=== PATIENT | female | born 1990 | race American Indian/Alaskan Native ===

== ENCOUNTER 2018-05-25 11:56 | Outpatient (CLI) | payer MEDICAID ==
[2018-05-25 12:24] VITALS: BP 137/75
== END 2018-05-25 13:23 | disposition home or self-care (01) ==
LOC: TRG 11:56
PROVIDERS: ATTEND Obstetrics & Gynecology
DX: O47.1 False labor at or after 37 completed weeks of gestation (principal); Z3A.39 39 weeks gestation of pregnancy
CPT/HCPCS: 59025

== ENCOUNTER 2018-06-03 15:27 | Inpatient (IN) | payer MEDICAID ==
[2018-06-03] MEDS ORDERED: MINERAL OIL PO PRN (16:05)
[2018-06-03] MEDS ORDERED: ZOFRAN IV PRN (16:05)
[2018-06-03] MEDS ORDERED: BRETHINE IVP PRN (16:05)
[2018-06-03] MEDS ORDERED: BRETHINE SUB-Q PRN (16:05)
[2018-06-03] MEDS ORDERED: XYLOCAINE 2% INFILTRATI ONE (16:05)
[2018-06-03] MEDS ORDERED: PITOCin/NS 30 UNIT/500ML 30 UNITS/500 ML BAG IV SCH ×2 (17:00)
[2018-06-03] MEDS ORDERED: PITOCin/NS 20 UNIT/1000ML DRIP 20 UNITS/1,000 ML BAG IV SCH (17:00)
--- NOTE | 2018-06-03 17:32 | History and Physical Report ---
History of Present Illness Date of examination: 06/03/18 Date of admission: 06/03/18 15:27 Chief complaint: SIUP at 40 weeks and 2 days with HTN. History of present illness: Patient is a 27 year old , LMP 08/25/17, EDC 06/01/18 at 40 weeks and 2 days gestation who was sent from the office for elevated BP. BP was 158/98, repeat was 148/94. She denies any headache, visual changes or RUQ pain. She denies any contractions, fluid leakage or bleeding. She reports good movement. Past History Past Surgical History: no surgical history [employer] History: chlamydia, trichomonas Family/Genetic History: none Social history: no significant social history - Obstetrical History Expected Date of Delivery: 06/01/18 Actual Gestation: 40 Week(s) 2 Day(s) : 1 Medications and Allergies Allergies Allergy/AdvReac Type Severity Reaction Status Date / Time No Known Allergies Allergy Unverified 05/25/18 12:24 Home Medications Medication Instructions Recorded Confirmed Last Taken Type No Known Home Medications [No 05/25/18 05/25/18 Unknown History Reported Home Medications] Active Meds: Active Medications Butorphanol Tartrate (Stadol) 1 mg IV Q2H PRN PRN Reason: Pain, Moderate (4-6) Ephedrine Sulfate (Ephedrine Sulfate) 10 mg IV Q2M PRN PRN Reason: Hypotension Lactated Ringer's (Lactated Ringers) 1,000 mls @ 125 mls/hr IV DIRECT RAJEEV Oxytocin/Sodium Chloride (Pitocin/Ns 20 Unit/1000ml Drip) 20 units in 1,000 mls @ 125 mls/hr IV DIRECT RAJEEV Oxytocin/Sodium Chloride (Pitocin/Ns 30 Unit/500ml) 30 units in 500 mls @ 1 mls /hr IV TITR RAJEEV; Protocol Oxytocin/Sodium Chloride (Pitocin/Ns 30 Unit/500ml) 30 units in 500 mls @ 0 mls /hr IV TITR RAJEEV; Protocol Mineral Oil (Mineral Oil) 30 ml PO QHS PRN PRN Reason: Constipation Ondansetron HCl (Zofran) 4 mg IV Q8H PRN PRN Reason: Nausea And Vomiting Terbutaline Sulfate (Brethine) 0.25 mg SUB-Q ONCE PRN PRN Reason: Hyperstimulation/Hypertonicity Terbutaline Sulfate (Brethine) 0.25 mg IVP ONCE PRN PRN Reason: Hyperstimulation/Hypertonicity - Vital Signs Vital signs: Vital Signs Pulse BP 105 H 145/62 06/03/18 16:07 06/03/18 16:07 Temp Pulse Resp BP Pulse Ox 100 H 119/57 06/03/18 16:37 06/03/18 16:37 - Physical Exam Cardiovascular: Normal S1, Normal S2 Lungs: Positive: Clear to auscultation Vulva: both: normal Adnexa: both: normal Deep Tendon Reflex Grade: Normal +2 - Obstetrical FHR: category 1 Uterine Contraction Monitor Mode: External Cervical Dilatation: 2 Cervical Effacement Percentage: 50 station: -3 Uterine Contraction Pattern: Absent Results All other labs normal. Assessment and Plan - Patient Problems (1) 40 weeks gestation of Current Visit: Yes Status: Acute (2) Gestational HTN Current Visit: Yes Status: Acute Plan to address problem: Admit to labor floor. Routine admitting and toxemia labs ordered. BP monitoring. monitorig. Labor induction with pitocin. (3) Late care Current Visit: Yes Status: Acute (4) Anemia Current Visit: Yes Status: Acute Qualifiers: Anemia type: iron deficiency (5) Rh negative status during Current Visit: Yes Status: Acute Plan to address problem: For rhogam after delivery.
[2018-06-03 18:53] LABS: Hemoglobin 11.1 gm/dl (10.1-14.3); Mean Corpuscular HGB Conc 34 % (30-34); Mean Corpuscular Hemoglobin 33 pg (28-32); Mean Corpuscular Volume 98 fl (79-97); Platelet Count 196 K/mm3 (140-440); Red Blood Count 3.37 M/mm3 (3.65-5.03); Red Cell Distribution Width 13.2 % (13.2-15.2)
[2018-06-03 19:06] LABS: Alanine Aminotransferase 7 units/L (7-56); Uric Acid 4.6 mg/dL (3.5-7.6)
[2018-06-03] MEDS: LACTATED RINGERS 1,000 ML IV SCH (20:48)
[2018-06-03] MEDS: STADOL IV PRN (22:46)
[2018-06-03 23:16] LABS: Bilirubin,Urine Negative (Negative); Blood,Urine Negative (Negative); Color,Urine Yellow (Yellow); Protein,Urine <15 mg/dL mg/dL (Negative); Urobilinogen,Urine < 2.0 mg/dL (<2.0)
[2018-06-03 23:19] LABS: Amorphous Crystals,Urine Few
[2018-06-04] MEDS: STADOL IV PRN ×3 (01:37→05:39)
[2018-06-04] MEDS: LACTATED RINGERS 1,000 ML IV SCH ×3 (03:46→15:47)
--- NOTE | 2018-06-04 07:42 | Anesthesia Consultation ---
Anesthesia Consult and Med Hx - Airway Anesthetic Teeth Evaluation: Good ROM Head & Neck: Adequate Mental/Hyoid Distance: Adequate Mallampati Class: Class III Intubation Access Assessment: Possibly Difficult - Pre-Operative Health Status ASA Pre-Surgery Classification: ASA2 Proposed Anesthetic Plan: Epidural, Spinal - Pulmonary Hx Asthma: No Hx Pneumonia: No - Cardiovascular System Hx Hypertension: No - Central Nervous System Hx Seizures: No Hx Psychiatric Problems: No - Endocrine Hx Renal Disease: No Hx Hypothyroidism: No Hx Hyperthyroidism: No - Hematic Hx Anemia: No Hx Sickle Cell Disease: No - Other Systems Hx Alcohol Use: No Hx Obesity: Yes
[2018-06-04] MEDS ORDERED: NARCAN 2 MG/2 ML IV PRN (08:30)
--- NOTE | 2018-06-04 08:45 | Event Note ---
Date: 06/04/18 Patient is obese with difficulty estimating her EFW. Obtained sono for growth which shows is ~ 7-8 lbs and cephalic. Continue with present care.
--- NOTE | 2018-06-04 09:11 | Ultrasound Report ---
OB ULTRASOUND History suspect macrosomia. Technique: Transabdominal ultrasound with Doppler interrogation. Gestation: Single Position: Cephalic Heart Rate: 149 BPM BPD: 9.1 cm = 37 w 0 d HC: 34.2 cm = 39 w 3 d AC: 34.0 cm = 37 w 6 d FL: 7.5 cm = 38 w 4 d HC/AC Ratio: 1.01 Cephalic Index: 76.6 Estimated Weight: 3401 grams LMP: 08/25/17 Clinical age = 40 w 3 d EDC: 06/01/18 US Gest. Age = 38 w 2 d EDC: 06/16/18 IMPRESSION: Viable, single intrauterine as described.
[2018-06-04] MEDS: fentaNYL-BUPIV 2 MCG/ML-0.125% 200 MCG/100 ML BAG EPIDURAL SCH ×2 (09:31→15:43)
[2018-06-04] MEDS ORDERED: TORADOL ONE (14:50)
[2018-06-04] MEDS ORDERED: XYLOCAINE 2% INFILTRATI ONE (16:46)
[2018-06-04] MEDS ORDERED: ZOFRAN IV PRN (17:14)
[2018-06-04] MEDS ORDERED: TUCKS PAD TP PRN (17:14)
[2018-06-04] MEDS ORDERED: BENADRYL PO PRN (17:14)
[2018-06-04] MEDS ORDERED: TYLENOL PO PRN (17:14)
[2018-06-04] MEDS ORDERED: MILK OF MAGNESIA PO PRN (17:14)
[2018-06-04] MEDS ORDERED: DULCOLAX PR PRN (17:14)
[2018-06-04] MEDS ORDERED: PHENERGAN PO PRN (17:14)
[2018-06-04] MEDS ORDERED: LANSINOH TP PRN (17:14)
--- NOTE | 2018-06-04 17:35 | Procedure Note ---
OB Delivery Note - Delivery Date of Delivery: 06/04/18 (16:44) Surgeon: ED VARGAS (DION) Estimated blood loss: 200cc - Vaginal Delivery presentation: vertex, compound (Left hand) Delivery position: OA Intrapartum events: mult.variable deceleratio Delivery induction: oxytocin Delivery augmentation: rupture of membranes Delivery monitor: external FHT, external uterine Route of delivery: Delivery placenta: spontaneous (16:49; Velamentous cord insertion with succenturiate lobe (sent to pathology)) Delivery cord: 3 umbilical vessels Episiotomy: none Delivery laceration: 1st degree (Perineal) Delivery repair: vicryl (2-0 CT) Delivery comments: of viable male infant at 16:44. Compound presentation (left hand), posterior arm delivered first without difficulty. less than vigorous. Stimulated and bulb suctioned by myself. Delayed cord clamping then cut by family member. to RW. APGARS 7/9. Good movement in both arms. Cord blood collected per protocol. Spontaneous ibarra delivery of intact placenta at 16:49 , Velamentous cord insertion noted with succenturiate lobe noted (to pathology) . FF@U-2. First degree perineal laceration repaired with 2-[address] under epidural/2% lidocaine. Pt tolerated well. and mother left in stable conditon in L&D. GBS Negative. - Infant A at 1 minute: 7 at 5 minutes: 9 Gender: Male (3795 grams, 8lbs 6oz, 20 3/4")
[2018-06-04] MEDS ORDERED: SODIUM CHLORIDE FLUSH SYRINGE 10 ML IV NR (18:00)
[2018-06-04] MEDS: MOTRIN PO SCH (18:56)
[2018-06-04] MEDS: NORCO 5/325 PO PRN (20:35)
[2018-06-05] MEDS: MOTRIN PO SCH ×4 (00:09→21:09)
[2018-06-05 06:12] LABS: Hematocrit 27.1 % (30.3-42.9); Hemoglobin 9.2 gm/dl (10.1-14.3)
--- NOTE | 2018-06-05 10:25 | Progress Note ---
Assessment and Plan A: PP Day#1 Asymptomatic Anemia P: Follow Routine Orders FeSO4 325mg PO BID Depo Provera prior to discharge RTO in one Week for Infant Circumcision D/C Home in the AM RTO in 6 Weeks Subjective - Subjective Date of service: 06/05/18 Patient reports: appetite normal, voiding normally, pain well controlled, flatus , ambulating normally [place]: doing well, bottle feeding Objective - Vital Signs Latest vital signs: Vital Signs Temp Pulse Resp BP BP Pulse Ox 06/05/18 08:23 102 H 18 140/83 98 06/05/18 08:00 98.6 F 06/05/18 00:00 98.7 F 77 18 117/67 06/04/18 20:35 18 06/04/18 20:00 98.7 F 77 16 101/76 06/04/18 18:20 98.9 F 104 H 20 134/84 06/04/18 17:59 122 H 125/76 06/04/18 17:44 110 H 130/82 06/04/18 15:41 83 125/80 06/04/18 15:20 98 H 100 06/04/18 15:15 80 100 06/04/18 15:10 95 H 100 06/04/18 15:05 98 H 100 06/04/18 15:00 81 100 06/04/18 14:55 101 H 100 06/04/18 14:50 93 H 100 06/04/18 14:45 78 65 L 06/04/18 14:40 80 135/63 100 06/04/18 14:34 98 H 100 06/04/18 14:30 98 H 100 06/04/18 14:25 92 H 99 06/04/18 14:20 88 98 06/04/18 13:40 103 H 136/83 06/04/18 12:39 88 127/71 06/04/18 11:39 90 119/65 06/04/18 10:40 93 H 144/83 Intake and Output 06/04/18 06/05/18 06/05/18 22:59 06:59 14:59 Intake Total 1300 Output Total 1000 Balance 300 Intake: IV 1000 Lactated Ringers 1,000 ml 1000 @ 125 mls/hr IV DIRECT RAJEEV Rx#:[id number] Intake, Free Water 300 Output: Urine 1000 Indwelling Catheter 1000 Other: Total, Output Amount 1000 Estimated Blood Loss 200 - Exam Breasts: Present: normal Cardiovascular: Present: Regular rate Lungs: Present: Clear to auscultation, Normal air movement Abdomen: Present: normal appearance, soft, normal bowel sounds Uterus: Present: normal, firm, fundal height below umbilicus Extremities: Present: normal - Labs Labs: Abnormal lab results 06/05/18 Range/Units 05:21 Hgb 9.2 L (10.1-14.3) gm/dl Hct 27.1 L (30.3-42.9) %
--- NOTE | 2018-06-05 10:27 | Discharge Summary ---
Providers - Providers Date of Admission: 06/03/18 15:27 Date of discharge: 06/06/18 Attending physician: SCOTTIE MAJANO MD Primary care physician: SCOTTIE MAJANO MD Hospitalization Reason for admission: induction of labor Delivery: Episiotomy: none Laceration: 1st degree Other procedures: none complications: none Discharge diagnosis: IUP at term delivered [place] baby: male Condition at discharge: Good Disposition: DC-01 TO HOME OR SELFCARE Plan - Provider Discharge Summary Activity: routine, no sex for 6 weeks, no heavy lifting 4 weeks, no strenuous exercise Diet: routine Instructions: routine Additional instructions: [] Smoking cessation referral if applicable(refer to patient education folder for contact #) [] Refer to [facility]'s [facility] Booklet Call your doctor immediately for: * Fever > 100.5 * Heavy vaginal bleeding ( >1 pad per hour) * Severe persistent headache * Shortness of breath * Reddened, hot, painful area to leg or breast * Drainage or odor from incision. * Keep incision clean and dry at all times and follow doctor's instructions regarding bathing/showering - Follow up plan Follow up: SCOTTIE MAJANO MD [Primary Care Provider] - 6 Weeks
[2018-06-05] MEDS: NORCO 5/325 PO PRN ×2 (10:52→21:08)
[2018-06-05] MEDS ORDERED: DEPO-PROVERA (CONTRACEPTION) IM NR (11:00)
[2018-06-05] MEDS: FEOSOL PO SCH (21:08)
[2018-06-06] MEDS: MOTRIN PO SCH ×3 (05:40→12:48)
[2018-06-06] MEDS ORDERED: BOOSTRIX IM ONE (06:00)
[2018-06-06] MEDS: FEOSOL PO SCH (10:20)
[2018-06-06] MEDS: NORCO 5/325 PO PRN (10:29)
[2018-06-06 14:04] VITALS: BP 126/79
== END 2018-06-06 13:52 | disposition home or self-care (01) | DRG 774 ==
LOC: LD 15:27 → OB 06-04 18:36
PROVIDERS: ADMIT Obstetrics & Gynecology; ATTEND Obstetrics & Gynecology
PROC: 10E0XZZ Delivery of Products of Conception, External Approach (ICD-10-PCS; principal; 2018-06-04)
PROC: 3E033VJ Introduction of Other Hormone into Peripheral Vein, Percutaneous Approach (ICD-10-PCS; 2018-06-04)
PROC: 10E0XZZ Delivery of Products of Conception, External Approach (ICD-10-PCS; 2018-06-04)
PROC: 0HQ9XZZ Repair Perineum Skin, External Approach (ICD-10-PCS; 2018-06-04)
PROC: 3E0R3BZ Introduction of Anesthetic Agent into Spinal Canal, Percutaneous Approach (ICD-10-PCS; 2018-06-04)
PROC: 00HU33Z Insertion of Infusion Device into Spinal Canal, Percutaneous Approach (ICD-10-PCS; 2018-06-04)
PROC: 3E0234Z Introduction of Serum, Toxoid and Vaccine into Muscle, Percutaneous Approach (ICD-10-PCS; 2018-06-06)
DX: O76 Abnormality in fetal heart rate and rhythm complicating labor and delivery (principal); O13.4 Gestational [pregnancy-induced] hypertension without significant proteinuria, complicating childbirth; O99.02 Anemia complicating childbirth; D50.9 Iron deficiency anemia, unspecified; O99.214 Obesity complicating childbirth; E66.9 Obesity, unspecified; Z68.39 Body mass index [BMI] 39.0-39.9, adult; Z3A.40 40 weeks gestation of pregnancy; Z37.0 Single live birth; Z23 Encounter for immunization; O70.0 First degree perineal laceration during delivery; Z67.41 Type O blood, Rh negative; O75.89 Other specified complications of labor and delivery; O43.123 Velamentous insertion of umbilical cord, third trimester; O43.193 Other malformation of placenta, third trimester
CPT/HCPCS: 36415; 76816; 81001; 82565; 83615; 84450; 84460; 84550; 85014; 85018; 85027; 86592; 86850; 86900; 86901; 88307; 90471; 90715; J0595; J1885; J2590; J7120